=== PATIENT | female | born 1955 | race Caucasian/White ===

== ENCOUNTER 2020-09-11 06:06 | Day surgery (SDC) | payer BC, OTHER ==
[2020-09-11] MEDS ORDERED: fentaNYL 100 MCG/2 ML SDV IV ONE ×5 (06:07→07:21)
[2020-09-11] MEDS ORDERED: Midazolam 1 MG/ML 2 ML SDV IV ONE ×7 (06:07→07:17)
[2020-09-11] MEDS ORDERED: Midazolam 1 MG/ML 2 ML SDV ONE (06:35)
[2020-09-11] MEDS ORDERED: fentaNYL 100 MCG/2 ML SDV ONE (06:36)
[2020-09-11] MEDS ORDERED: Dextrose 5%-0.45% NaCl 1,000 ML IV SCH (07:00)
--- NOTE | 2020-09-11 10:10 | OR ---
DATE: 09/11/2020 PROCEDURE: Total colonoscopy. INSTRUMENT USED: PCF-H190DL Olympus video colonoscope. PREMEDICATIONS: Fentanyl 150 mcg intravenous, Versed 4 mg intravenous. Nasal O2 cannula. The procedure was done under pulse oximetry, BP recording, and gambling monitor. INDICATION: The patient with positive Cologuard. Colonoscopic examination is done for detection of any polypoid lesions and removal, endoscopic hemostasis therapy if needed. DESCRIPTION OF PROCEDURE: Initial rectal exam was unremarkable. Rigid anoscopy was normal. The colonoscope was passed with ease. Numerous scattered diverticula were noted in the distal left colon along with deformity. The scope was passed with ease up to the ileocecal area. Photographs were taken of the normal-appearing cecum identified by landmarks of appendiceal orifice and double- bulged ileocecal folds. No bleeding was noted from any of the visualized areas at the commencement of the examination. No stricture. No vascular ectasia. No large isolated ulcerations seen. No evidence of diffuse inflammatory bowel disease in the form of friability, contact bleeding, or ulcerations. No polyp or tumor mass identified. The bowel preparation was found to be adequate. Kinderhook scale 3 in all the regions, total score 9. Probing the proximal sides of folds and flexures using adequate distention and clearing up the stool material, withdrawal of the scope was made, cecum to rectum time over 6 minutes. No bleeding was noted from any of the visualized areas at the completion of examination. IMPRESSION: Diverticulosis. The patient tolerated the procedure well. [facility] /[id number]
[2020-09-11 10:42] VITALS: BP 136/80; PULSE 58
== END 2020-09-11 10:00 | disposition home or self-care (01) ==
LOC: DL.ENDO 06:06
PROVIDERS: ATTEND Internal Medicine Gastroenterology
DX: K57.30 Diverticulosis of large intestine without perforation or abscess without bleeding (principal); I10 Essential (primary) hypertension; K21.9 Gastro-esophageal reflux disease without esophagitis; Z98.890 Other specified postprocedural states
CPT/HCPCS: J2250; J3010; J7042

== ENCOUNTER 2021-03-19 06:50 | Day surgery (SDC) | payer BC, OTHER ==
[2021-03-19] MEDS ORDERED: Dexamethasone 4 MG/ML SDV IV ONE (06:51)
[2021-03-19] MEDS ORDERED: Sodium Chloride 0.9% 10 ML Syringe IV ONE (06:51)
[2021-03-19] MEDS ORDERED: Midazolam 1 MG/ML 2 ML SDV IV ONE (06:51)
[2021-03-19] MEDS ORDERED: Timolol Maleate 0.5% Ophth Soln 5 ML Bottle EYELF ONE (07:00)
[2021-03-19] MEDS ORDERED: Povidone-Iodine 5% Sterile Ophth Soln 30 ML Bottle EYELF ONE ×2 (07:00→08:26)
[2021-03-19] MEDS ORDERED: Acetaminophen/Codeine 300-30 MG Tab PO PRN (07:00)
[2021-03-19] MEDS ORDERED: Ondansetron 4 MG/2 ML SDV IVPUSH PRN (07:00)
[2021-03-19] MEDS ORDERED: Proparacaine 0.5% Ophth Soln 15 ML Bottle EYELF ONE (07:00)
[2021-03-19] MEDS ORDERED: Acetaminophen 325 MG Tab PO PRN (07:00)
[2021-03-19] MEDS ORDERED: Phenylephrine 10% Ophth Soln 5 ML Bot EYELF ONE (07:00)
[2021-03-19] MEDS ORDERED: Moxifloxacin 0.5% Ophth Soln 3 ML Bottle EYELF ONE (07:00)
[2021-03-19] MEDS ORDERED: Cataract Ophth Solution EYELF ONE (07:00)
[2021-03-19] MEDS ORDERED: Tropicamide 1% Ophth Soln 15 ML Bottle EYELF ONE (07:00)
[2021-03-19] MEDS ORDERED: Tetracaine HCl/PF 0.5% 4 ML Bottle EYELF ONE (08:26)
[2021-03-19] MEDS ORDERED: Lidocaine 1% 30 ML SDV ONE (08:26)
[2021-03-19] MEDS ORDERED: Dexamethasone/Neomycin/Polymyxin B Ophth Oint 3.5 GM Tube EYELF ONE (08:27)
[2021-03-19] MEDS ORDERED: Balanced Salt Solution Ophth Irrig 500 ML Bottle IOCULAR ONE (08:27)
[2021-03-19] MEDS ORDERED: Diclofenac Sodium 0.1% Ophth Soln 5 ML Bottle EYELF ONE (08:27)
[2021-03-19] MEDS ORDERED: Chondroitin Sulfate/Hyaluronate Sodium Ophth Inj 0.75 ML Syringe EYELF ONE (08:27)
[2021-03-19] MEDS ORDERED: Apraclonidine 0.5% Ophth Soln 5 ML Bot EYELF ONE (08:27)
[2021-03-19] MEDS ORDERED: Vancomycin 500 MG SDV EYELF ONE (08:28)
[2021-03-19 09:20] VITALS: BP 157/81; PULSE 74
== END 2021-03-19 09:25 | disposition home or self-care (01) ==
LOC: DL.SDS 06:50
PROVIDERS: ATTEND Ophthalmology
DX: H25.812 Combined forms of age-related cataract, left eye (principal); I10 Essential (primary) hypertension; E78.5 Hyperlipidemia, unspecified; K21.9 Gastro-esophageal reflux disease without esophagitis; G25.81 Restless legs syndrome; F51.01 Primary insomnia; Z79.899 Other long term (current) drug therapy
CPT/HCPCS: 00142; 66984; A9270; J1100; J2250; J3370; V2787

== ENCOUNTER 2021-04-02 06:51 | Day surgery (SDC) | payer BC, OTHER ==
[2021-04-02] MEDS ORDERED: Midazolam 1 MG/ML 2 ML SDV IV ONE ×2 (06:52)
[2021-04-02] MEDS ORDERED: Sodium Chloride 0.9% 10 ML Syringe IV ONE ×2 (06:52)
[2021-04-02] MEDS ORDERED: Dexamethasone 4 MG/ML SDV IV ONE ×2 (06:52)
[2021-04-02] MEDS ORDERED: Cataract Ophth Solution EYERT ONE (07:00)
[2021-04-02] MEDS ORDERED: Timolol Maleate 0.5% Ophth Soln 5 ML Bottle EYERT ONE (07:00)
[2021-04-02] MEDS ORDERED: Proparacaine 0.5% Ophth Soln 15 ML Bottle EYERT ONE (07:00)
[2021-04-02] MEDS ORDERED: Povidone-Iodine 5% Sterile Ophth Soln 30 ML Bottle EYERT ONE (07:00)
[2021-04-02] MEDS ORDERED: Ondansetron 4 MG/2 ML SDV IVPUSH PRN (07:00)
[2021-04-02] MEDS ORDERED: Sodium Chloride 0.9% 10 ML Syringe FLUSH PRN (07:00)
[2021-04-02] MEDS ORDERED: Phenylephrine 10% Ophth Soln 5 ML Bot EYERT ONE (07:00)
[2021-04-02] MEDS ORDERED: Tropicamide 1% Ophth Soln 15 ML Bottle EYERT ONE (07:00)
[2021-04-02] MEDS ORDERED: Acetaminophen/Codeine 300-30 MG Tab PO PRN (07:00)
[2021-04-02] MEDS ORDERED: Acetaminophen 325 MG Tab PO PRN (07:00)
[2021-04-02] MEDS ORDERED: Moxifloxacin 0.5% Ophth Soln 3 ML Bottle EYERT ONE (07:00)
[2021-04-02] MEDS ORDERED: Lidocaine 1% 30 ML SDV ONE (08:34)
[2021-04-02] MEDS ORDERED: Tetracaine HCl/PF 0.5% 4 ML Bottle EYERT ONE (08:34)
[2021-04-02] MEDS ORDERED: Diclofenac Sodium 0.1% Ophth Soln 5 ML Bottle EYERT ONE (08:34)
[2021-04-02] MEDS ORDERED: Dexamethasone/Neomycin/Polymyxin B Ophth Oint 3.5 GM Tube EYERT ONE (08:34)
[2021-04-02] MEDS ORDERED: Balanced Salt Solution Ophth Irrig 500 ML Bottle IOCULAR ONE (08:34)
[2021-04-02] MEDS ORDERED: Apraclonidine 0.5% Ophth Soln 5 ML Bot EYERT ONE (08:34)
[2021-04-02] MEDS ORDERED: Vancomycin 500 MG SDV EYERT ONE (08:35)
[2021-04-02] MEDS ORDERED: Chondroitin Sulfate/Hyaluronate Sodium Ophth Inj 0.75 ML Syringe EYERT ONE (08:35)
[2021-04-02 12:42] VITALS: BP 125/74; PULSE 80
== END 2021-04-02 09:35 | disposition home or self-care (01) ==
LOC: DL.SDS 06:51
PROVIDERS: ATTEND Ophthalmology
DX: H25.811 Combined forms of age-related cataract, right eye (principal); I10 Essential (primary) hypertension; K21.9 Gastro-esophageal reflux disease without esophagitis; F51.01 Primary insomnia; E78.5 Hyperlipidemia, unspecified
CPT/HCPCS: 00142; A9270-GY; J1100; J2250; J3370

== ENCOUNTER 2024-08-18 07:54 | Emergency (ER) | payer MEDICARE, OTHER ==
[2024-08-18 08:07] VITALS: BP 159/82; PULSE 99
[2024-08-18] MEDS: Take Home: Ondansetron 4 MG Tab.DIS, 5 Tab Pack PO ONE (08:58)
[2024-08-18] MEDS: Take Home: Amoxicillin/Clavulanate K 875-125 MG Tab, 6 Tab Pack PO ONE (08:58)
[2024-08-18] MEDS: Take Home: Acetaminophen/oxyCODONE 325-5 MG, 5 Tab Pack PO ONE (08:58)
== END 2024-08-18 08:55 | disposition home or self-care (01) ==
LOC: DL.ED 07:54
DX: K11.20 Sialoadenitis, unspecified (principal); I10 Essential (primary) hypertension; E78.00 Pure hypercholesterolemia, unspecified; K21.9 Gastro-esophageal reflux disease without esophagitis; M19.90 Unspecified osteoarthritis, unspecified site; Z79.899 Other long term (current) drug therapy
CPT/HCPCS: 99283; A9270; Q0162

== ENCOUNTER 2024-09-12 05:18 | Day surgery (SDC) | payer MEDICARE, OTHER ==
[2024-09-12] MEDS ORDERED: Propofol 200 MG/20 ML SDV IV ONE (05:19)
[2024-09-12] MEDS ORDERED: Lactated Ringers 1,000 ML IV ONE (05:19)
[2024-09-12] MEDS ORDERED: Propofol 200 MG/20 ML SDV ONE (05:38)
[2024-09-12] MEDS: Lactated Ringers 1,000 ML IV SCH (06:14)
[2024-09-12 08:23] VITALS: BP 135/69; PULSE 66
== END 2024-09-12 08:42 | disposition home or self-care (01) ==
LOC: DL.ENDO 05:18
PROVIDERS: ATTEND Internal Medicine Gastroenterology
DX: K20.90 Esophagitis, unspecified without bleeding (principal); K44.9 Diaphragmatic hernia without obstruction or gangrene; D50.9 Iron deficiency anemia, unspecified; I10 Essential (primary) hypertension; K21.9 Gastro-esophageal reflux disease without esophagitis; E03.9 Hypothyroidism, unspecified
CPT/HCPCS: J2003; J2704; J7120

== ENCOUNTER 2024-10-19 06:17 | Day surgery (SDC) | payer MEDICARE, OTHER ==
[2024-10-19] MEDS ORDERED: Propofol 200 MG/20 ML SDV IV ONE (06:18)
[2024-10-19] MEDS ORDERED: Lactated Ringers 1,000 ML IV ONE (06:18)
[2024-10-19] MEDS: Lactated Ringers 1,000 ML IV SCH (06:57)
[2024-10-19 09:03] VITALS: BP 149/78; PULSE 75
[2024-10-19] MEDS ORDERED: Propofol 200 MG/20 ML SDV ONE (10:10)
== END 2024-10-19 09:08 | disposition home or self-care (01) ==
LOC: DL.ENDO 06:17
PROVIDERS: ATTEND Internal Medicine Gastroenterology
DX: D12.2 Benign neoplasm of ascending colon (principal); D64.9 Anemia, unspecified; K57.30 Diverticulosis of large intestine without perforation or abscess without bleeding; K63.89 Other specified diseases of intestine; I10 Essential (primary) hypertension; K21.9 Gastro-esophageal reflux disease without esophagitis; E78.5 Hyperlipidemia, unspecified; Z79.899 Other long term (current) drug therapy
CPT/HCPCS: 00811; 88305; J2704; J7120